=== PATIENT | female | born 1970 | race Caucasian/White ===

== ENCOUNTER 2023-12-25 10:36 | Outpatient (RCR) | payer MEDICAID, SELFPAY ==
--- NOTE | 2023-12-28 17:44 | HP.OTEVAL_ITS ---
Patient's Visit Information Visit Information Visit Information: RENETTA BLEVINS is a 53 year old F, referred to Occupational Therapy by Dr. Danny Martinez MD, with a diagnosis of lymphedema. Date of Evaluation: 12/25/23 Occupational Therapist: Caryl Nichole, [place], CHT Subjective Subjective: This 53 year old female was seen for OT eval with dx of breast cancer in 2020. pt states she had lumpectomy Mar 27, 2021 and was doing well. Had no issues. Pt underwent a total reverse shoulder replacement in August of 2023. since then she has had increase in pain and feeling of fullness in her breast. states she had fall in 2023 and she continued to have soreness and sensitivity pt arrives to center with her grandson. Denies use of compression bra or wrapping of chest. 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 pt states she would like to know what she can do on her own to assist with mtg. her lymphedema Pain under left UE: Current Pain Intensity: 2 Pain Intensity Range: 2 Lymphedema (Circumferential Measure) MCP: right 19.5cm left 20cm Wrist: right 15.5cm left 15cm Lower forearm: right 19cm left 19cm Largest forearm: right 25cm left 25cm Elbow: right 25cm left 25cm Largest humerus: right 35cm left 35cm Axcillary: right 35cm left 36cm Upper Exremity Comments: chest top breast 102cm chest breast peak 106 cm chest below breast 104cm Quick DASH-Disab of Arm,Shoulder& Hand Quick DASH Score: 23.3325 Goals Goal: Patient will demonstrate adequate knowledge of self-massage by the end of the second week.: Yes Goal: Patient will demonstrate adequate knowledge of skin care and precautions by the end of the first week.: Yes Goal: Patient will demonstrate adequate knowledge of therapeutic exercises by discharge.: Yes Goal: Patient will voice understanding of need to replace compression garment every four to six months by discharge.: Yes Rehabilitation General Assessment: pt demo with symptoms of left breast lymphedema and demo need of skilled OT services 3-4 visits to ensure pts understanding of life long mtg of lymphedema, use of compression garments, ed. on self manual lymph massage. Pt was ed. on compression garment of 20-30 mmHg and handouts on self manual lymph massage to initiates 3-4 x a day - therapist ed. pt that a beneficial exercise would be water exercise program. Pt demo understanding and agrees to POC. pt was to call insurance to see if the compression bra would be covered and she felt there was a facility in [place] where she could get measured- therapist ed. her there was a place in [place] but at this time pt does not want to go there. Pt to call and let this therapist know where to fax an order. pt demo understanding and agree to POC. Rehabilitation Potential: Good Visit Plan Frequency: Every Other Week Duration: 4 Weeks TEXT: Thank you for the opportunity to evaluate your patient. For Medicare and Medicare HMO plans, please review the plan of care and approve it. It will need to be FAXED BACK to us at [phone] for Medicare purposes. Please let me know if there are questions or concerns regarding this plan of care. Physician Signature: Date:
--- NOTE | 2024-05-24 15:26 | HP.OT.NRP ---
Patient Information Patient Information: RENETTA BLEVINS was seen in my office for initial evaluation on 12/25/23. The following Plan of Care was established for this patient: POC Established Initial Frequency: Every Other Week Initial Duration: 4 Weeks Last Seen Last Seen: This patient was last seen in our office 12/25/23. Pertinent comments regarding their Occupational therapy will appear below: pt was seen for OT eval only- at this time due to time lapse in services pt d/c at this time. At this point I will be discontinuing this patient from occupational therapy. I would be happy to see this patient again in the future if found appropriate by the physician. Thank you! Caryl Nichole, OTR/L, CHT
== END 2023-12-25 19:00 | disposition home or self-care (01) ==
LOC: OT 10:36
PROVIDERS: PCP Internal Medicine; Referring Provider Internal Medicine; Visit Provider Internal Medicine
DX: I89.0 Lymphedema, not elsewhere classified (principal); Z85.3 Personal history of malignant neoplasm of breast
CPT/HCPCS: 97166; 97530